=== PATIENT | male | born 1970 | race Caucasian/White ===

== ENCOUNTER → 2017-04-08 | Outpatient (CLI) | payer OTHER ==
[2017-04-08 14:56] LABS: BASOPHILS % (AUTO) 1.2 % (0-1); EOSINOPHILS # (AUTO) 0.47 10*3/UL; EOSINOPHILS % (AUTO) 5.7 % (0-8); HEMATOCRIT 34.3 % (42.0-52.0); HEMOGLOBIN 11.2 g/dL (14.0-18.0); LYMPHOCYTES # (AUTO) 1.46 10*3/uL; MEAN CORPUSCULAR HEMOGLOBIN 26.7 PG (27-31); MEAN CORPUSCULAR HGB CONC 32.7 g/dL (33-37); MEAN CORPUSCULAR VOLUME 81.9 FL (80-90); MEAN PLATELET VOLUME 9.9 FL (7.4-12.2); MONOCYTES # (AUTO) 0.86 10*3/UL (0.3-0.8); MONOCYTES % (AUTO) 10.4 % (5-15); NEUTROPHILS # (AUTO) 5.24 10*3/UL; NEUTROPHILS % (AUTO) 63.3 % (50-80); PLATELET MORPHOLOGY COMMENT NORMAL MORPHOLOGY (NORM); RBC MORPHOLOGY COMMENT NORMAL MORPHOLOGY (NORM); RED BLOOD COUNT 4.19 10^6/uL (4.70-6.10); WBC MORPHOLOGY COMMENT NORMAL MORPHOLOGY (NORM)
[2017-04-08 15:03] LABS: BLOOD UREA NITROGEN 11 mg/dL (7-22); BUN/CREATININE RATIO 13.75 (6-20); CALCIUM 8.5 mg/dL (8.7-10.7); EST GLOMERULAR FILTRATION > 60 (>60 ml/min/1.73m(2))
--- NOTE | 2017-04-09 10:04 | DI ---
PA /LATERAL CHEST X-RAY, 04/08/2017 2:27 PM : Clinical History: Fever of unspecified origin Previous Exam: None at this facility. There is no acute soft tissue or bony abnormality. Heart size is normal. Lungs are clear. Mediastinal structures are normal. There are no pulmonary nodules. IMPRESSION: Normal chest x-ray.
== END ==
LOC: MOB LAB 14:22
PROVIDERS: ATTEND Physician Assistant Medical
DX: R50.9 Fever, unspecified (principal); R53.83 Other fatigue; R42 Dizziness and giddiness; R61 Generalized hyperhidrosis; Z96.652 Presence of left artificial knee joint
CPT/HCPCS: 36415; 71020; 80048; 85025

== ENCOUNTER → 2017-06-08 | Outpatient (CLI) | payer OTHER ==
[2017-06-08 17:10] LABS: HEMOGLOBIN 15.2 g/dL (14.0-18.0); MEAN CORPUSCULAR HEMOGLOBIN 27.1 PG (27-31); MEAN CORPUSCULAR HGB CONC 34.5 g/dL (33-37); MEAN CORPUSCULAR VOLUME 78.6 FL (80-90); RED BLOOD COUNT 5.6 10^6/uL (4.70-6.10)
== END ==
LOC: MOB LAB 16:08
PROVIDERS: ATTEND Family Medicine
DX: D64.9 Anemia, unspecified (principal)
CPT/HCPCS: 36415; 85027